=== PATIENT | female | born 1980 | race Caucasian/White ===

== ENCOUNTER 2018-03-13 21:00 | Emergency (ER) ==
[2018-03-13 21:13] VITALS: BP 141/86; TEMP 97.6; BMI 41.1
[2018-03-13] MEDS ORDERED: DILAUDID 1 MG/ML SYRINGE IM STA (21:44)
--- NOTE | 2018-03-13 21:48 | ED.PDOC ---
General ED Provider: Dr. AMARILIS AGOSTO Chief Complaint: Extremity Pain/Injury Stated Complaint: Patient is a 38 year old female who states that she fell with outstreached arm sustaining injury to the right elbow now unable to move it. Time Seen by Physician: 21:46 Mode of Arrival: Walk-In Information Source: Patient Exam Limitations: No limitations Primary Care Provider: DARVIN BIRD Nursing and Triage Documentation Reviewed and Agree: Yes Does patient meet sepsis criteria?: No System Inflammatory Response Syndrome: Not Applicable Sepsis Protocol: For patient's 13 years and over: Temp is 96.8 and below OR 101 and greater Pulse >90 BPM Resp >20/minute Acutely Altered Mental Status Are patient's symptoms suggestive of a new infection, such as: -Pneumonia -Skin, Soft Tissue -Endocarditis -UTI -Bone, Joint Infection -Implantable Device -Acute Abdominal Infection -Wound Infection -Meningitis -Blood Stream Catheter Infection -Unknown Musculoskeletal Complaint Exam - Elbow Pain Complaint/Exam Mechanism of Injury: Reports: Trauma (from a fall ) Onset/Duration: Just prior to arrival Symptoms Are: Still present Onset of Pain: Reports: Immediate, Post accident Initial Severity: Severe Current Severity: Severe Location: Reports: Radiating (wrist and upper arm ) Character: Reports: Aching, Throbbing, Spasmodic Alleviating: Reports: None Aggravating: Reports: Movement, Twisting Associated Signs and Symptoms: Reports: Swelling. Denies: Redness, Bruising, Fever, Weakness, Numbness, Tingling Related History: Denies: Similar episode, Occupational injury Related Surgical History: Reports: None Elbow Findings: Present: Swelling. Absent: Foreign body Tenderness: Present: Lateral Condyle, Radial Head Limited Range of Motion: Present: Flexion Differential Diagnoses: Closed Fracture, Nursemaid's Elbow, Sprain, Strain Review of Systems - Review Of Systems Constitutional: Reports: No symptoms Respiratory: Reports: No symptoms Cardiac: Reports: No symptoms GI: Reports: No symptoms Musculoskeletal: Reports: Joint pain, Joint swelling, Muscle pain, Muscle stiffness Skin: Reports: Bruising Neurological: Reports: Anxiety All Other Systems: Reviewed and Negative Past Medical History - Past Medical History Endocrine: Reports: None Cardiovascular: Reports: None Respiratory: Reports: Asthma Hematological: Reports: Anemia Gastrointestinal: Reports: GERD Genitourinary: Reports: None Neuro/Psych: Reports: Anxiety, Depression Musculoskeletal: Reports: None Cancer: Reports: None Last Menstrual Period: PRESENTLY - Surgical History General Surgical History: Reports: (x2), Tonsillectomy, Other ( Diaphragm repair ) - Family History Family History: Reports: None - Social History Smoking Status: Former smoker, Vaping Hx Substance Use: No Alcohol Screening: Occasionally - Immunizations Tetanus Shot up to Date: (UNKNOWN) Physical Exam - Physical Exam Appearance: Ill-appearing Ill-appearing: Mild Pain Distress: Severe Respiratory: Airway patent, Breath sounds clear, Breath sounds equal, Respirations nonlabored Cardiovascular: RRR, Pulses normal, No rub, No murmur Musculoskeletal: Limited ROM (at elbow and wrist ), Edema Skin: Warm, Dry Neurological: Alert, Oriented Psychiatric: Anxious Critical Care Note - Critical Care Note Total Time (mins): 0 Course - Course Orders, Labs, Meds: Orders Category Date Time Status Ed After Hour Supply Med [Ed After Hours Supply Med MEDS 03/14/18 00:23 Discontinued Sent Home] 1 each PO ONCE ONE Hydromorphone HCl [Dilaudid 1 mg/ml Syringe] MEDS 03/13/18 21:44 Discontinued 1 mg IM ONCE STA Ketorolac Tromethamine [Toradol] MEDS 03/13/18 22:44 Discontinued 60 mg IM ONCE STA Oxycodone-Acetaminophen 5-325 [Percocet 5-325] MEDS 03/14/18 00:24 Discontinued 1 tab .ROUTE .STK-MED ONE Oxycodone-Acetaminophen 5-325 [Percocet 5-325] MEDS 03/14/18 00:27 Discontinued 1 tab PO ONCE STA ELBOW, RIGHT MIN 3 VIEWS Stat RADS 03/13/18 21:44 Completed WRIST, RIGHT 3 VIEWS Stat RADS 03/13/18 21:44 Completed Medications Discontinued Medications Generic Name Dose Route Start Last Admin Trade Name Freq PRN Reason Stop Dose Admin Hydromorphone HCl 1 mg 03/13/18 21:44 03/13/18 21:54 Dilaudid 1 Mg/Ml Syringe IM 03/13/18 21:45 1 mg ONCE STA Administration Ketorolac Tromethamine 60 mg 03/13/18 22:44 03/13/18 22:54 Toradol IM 03/13/18 22:45 60 mg ONCE STA Administration Miscellaneous Information 1 each 03/14/18 00:23 Ed After Hours Supply Med Sent Home PO 03/14/18 00:24 ONCE ONE Protocol Oxycodone/Acetaminophen 1 tab 03/14/18 00:27 Percocet 5-325 PO 03/14/18 00:28 ONCE STA Vital Signs: Temp Pulse Resp BP Pulse Ox 03/13/18 21:01 97.6 F 91 H 20 141/86 H 99 Departure - Departure Time of Disposition: 00:32 Disposition: HOME SELF-CARE Discharge Problem: Fracture of radial head, right, closed Qualifiers: Encounter type: initial encounter Fracture alignment: nondisplaced Qualified Code(s): S52.124A - Nondisplaced fracture of head of right radius, initial encounter for closed fracture Instructions: Elbow Fracture (ED) Condition: Stable Pt referred to PMD for follow-up: Yes IPMP verified?: No Additional Instructions: Follow up with ORtho in the morning Take Medications as prescribed Prescriptions: Oxycodone-Acetaminophen 5-325 [Percocet 5-325] 1 tab PO Q6H #30 tablet Allergies/Adverse Reactions: Allergies amoxicillin Adverse Reaction (Verified 03/13/18 21:11) Rash latex Adverse Reaction (Verified 03/13/18 21:11) Rash Sulfa (Sulfonamide Antibiotics) Adverse Reaction (Verified 03/13/18 21:11) Hives Home Medications: Ambulatory Orders Duloxetine HCl [Cymbalta] 60 mg PO DAILY 03/13/18 Esomeprazole Magnesium [Nexium] 40 mg PO DAILY 03/13/18 Oxycodone-Acetaminophen 5-325 [Percocet 5-325] 1 tab PO Q6H #30 tablet 03/14/18 Disposition Discussed With: Patient, Family
[2018-03-13] MEDS ORDERED: TORADOL IM STA (22:44)
[2018-03-14] MEDS ORDERED: NORCO 5-325 PO STA (00:22)
[2018-03-14] MEDS ORDERED: ED AFTER HOURS SUPPLY MED SENT HOME PO ONE (00:23)
--- NOTE | 2018-03-14 00:25 | DI ---
EXAM: Lateral view of the right elbow. HISTORY: Fall. FINDINGS: The exam is limited with only a lateral view. There is a fracture of the right radial hea d. There is a questionable fracture of the right radial neck which is not well visualized. Evaluati on of the joint spaces is limited with only a lateral view. Impression: Fracture of the right radial head. Questionable fracture of the right radial neck. Recommend additional views for further evaluation if clinically indicated. Limited exam as described.
[2018-03-14] MEDS: PERCOCET 5-325 ONE ×2 (00:27→00:52)
[2018-03-14] MEDS ORDERED: PERCOCET 5-325 PO STA (00:27)
--- NOTE | 2018-03-14 00:27 | DI ---
EXAM: AP and oblique views of the right wrist. HISTORY: Fall. FINDINGS: The exam is limited without a lateral view. Evaluation of the joint spaces is limited with out a lateral view. There is an old non-united fracture through the tip of the ulnar styloid. No ev idence of acute fracture. Impression: Old non-united fracture through the tip of the ulnar styloid. Limited exam as described.
[2018-03-14] MEDS ORDERED: PERCOCET 5-325 ONE (00:46)
== END 2018-03-14 01:06 | disposition home or self-care (01) ==
LOC: ED 21:00
DX: S52.124A Nondisplaced fracture of head of right radius, initial encounter for closed fracture (principal); W19.XXXA Unspecified fall, initial encounter; Z72.0 Tobacco use
CPT/HCPCS: 96372; 99283

== ENCOUNTER 2018-05-15 11:00 | Outpatient (RCR) ==
--- NOTE | 2018-04-30 16:09 | RS.OPPTEV2 ---
Date of Note: 04/30/18 Visit #: 1 Number of visits approved by Insurance: pending Date of Evaluation: 04/30/18 Payer Source: Medicaid Date of Onset/Injury/Change in Status: 03/13/18 Surgery Performed?: Yes (Radial head replacement, ORIF) Date of Procedure: 03/22/18 (pt also underwent I & D 04/05/18) Treatment Diagnosis: closed displaced fx of head of R radius, R elbow pain, joint stiffness, History of Condition/Mechanism of Injury:: pt suffered a fall outside landing on outstretched arm sustaining fx R radius. pt underwent ORIF 03/22/18, subsequently had infection and underwent I&D 04/05/18 and now has a groshong catheter for IV antibiotics. Reports she has 3 more weeks of IV antibiotics and then oral antibiotics. Prior Level of Function.....Patient was independent with: ADL's, Self Care, Work /Vocation, Caregiving, Ambulation/Mobility, Community Integration/Access Level of Function: pt works as a beautician. Currently unable to work due to injury. Functional Limitations: Sleep, ADL's, Reaching, Pushing, Pulling, Lifting, Carrying Current Subjective/complaints:: pt states that she has been trying to move arm somewhat and is anxious to return to prior level of function. Treatment Side (optional): Right *Precautions: * LATEX ALLERGY*pt with groshong cath for IV antibiotics, infection R elbow Medical History Medical History: Arthritis Surgical History: (x2) Surgical History Comments:: diaphragm repair Smoking Status: Former smoker Hx Home Medications: cynbalta, nexium, percoset Patient's Goals: improve strength and ROM R elbow Pain Assessment - Pain Description Pain Location: R elbow Current Pain Intensity: 3/10 Worst Pain Intensity: 10/10 Functional Outcome Measure UE Functional Index: 13 - G Codes & Severity Modifier G Codes & Modifier: n/a Source of G Code score: n/a Observation - Observation Inspection: incision with small scabbed area, min erythema, no exudate noted. area is warm to touch Posture: Forward Head, Rounded Shoulders, Increased Thoracic Kyphosis Handedness: Right Girth Measurement Upper: R elbow 32cm. 10 cm distal to elbow 28cm Gait - Gait Pattern General Gait Pattern Observation: No Deviations/Normal General Range of Motion: LUE WFL's. BLE WFL's Muscle Strength: LUE 5/5. BLE 5/5. RUE shld flex 4/5, Elbow ROM: Left WFL's Elbow Muscle Strength: Left WFL's - Right Elbow ROM Right Elbow Extension: -20 AROM Right Elbow Flexion: 95 (AROM) Right Elbow Supination: 28 Right Elbow Pronation: 60 Right Elbow ROM Limitations: Soft Tissue Tightness, Muscle Weakness, Pain - Right Elbow Strength Right Elbow Extension: 3- Fair- Right Elbow Flexion: 3- Fair- Right Forearm Pronation: 3- Fair- Right Forearm Supination: 3- Fair- Program Advisor Strength Left Hand Program Advisor Strength: 60# Right Hand Program Advisor Strength: 36# Dynamometer Testing Position: 2nd Position Palpation Palpation Findings: Tenderness Comments:: tenderness R elbow Sensation - Sensation Right Upper Extremity: Intact/Normal Left Upper Extremity: Intact/Normal Right Lower Extremity: Intact/Normal Left Lower Extremity: Intact/Normal Balance - Sitting Balance Static Sitting Balance: Normal Dynamic Sitting Balance: Normal - Standing Balance Static Standing Balance: Normal Dynamic Standing Balance: Normal Interventions - Exercise/Activities/Manual Therapy Exercises/Activities: pt performed wrist flex/ext, wrist pronation/supination, AAROM elbow flex/ext, squeeze ball, finger opposition squeezing the ball Manual Therapy: n/a HOME EXERCISE PROGRAM: pt given written HEP including wrist flex/ext, pronation/ supination, elbow flex/ext, squeeze the ball, finger opposition squeezing the ball. - Charges Timed Code Treatment Minutes: 49 Total Treatment Time: 54 Procedures billed for this date of service:: eval low, ex EVALUATION COMPLEXITY LEVEL EVALUATION COMPLEXITY LEVEL: HISTORY: Low, EXAM OF BODY SYSTEMS: Low, CLINICAL PRESENTATION: Low, CLINICAL DECISION MAKING: Low Assessment Assessment: pt presents with decreased R elbow ROM, swelling R elbow, decreased strength R elbow. Feel pt would benefit from skilled PT for therex for ROM, strengthening. Patient Education: Home Exercise Program, Education of Plan of Care Rehab Potential: Good Short Term Goals Goal #1: pt independent with initial HEP Goal to be met by: 05/10/18 Goal #2: Improve R elbow flex 100 ext -10, pronation WFL's Goal to be met by: 05/10/18 Goal #3: Improve R elbow strength flex/ext 3+-4-/5 Goal to be met by: 05/10/18 Goal #4: Decrease edema R elbow Goal to be met by: 05/10/18 Keg Washer Goals Goal #1: Decrease pain R elbow < 3/10 with activity Goal to be met by: 05/24/18 Goal #2: pt report able to return to normal daily activities Goal to be met by: 05/24/18 Goal #3: R elbow flex 120 ext -5, supination 60, pronation neutral Goal to be met by: 05/24/18 Plan - Treatment to be Provided Procedures: Therapeutic Exercises, Therapeutic Activity, Manual Therapy, Massage , Patient Education Modalities: Cryotherapy - Treatment Plan Frequency: 2 X week Duration: 4 weeks Dates of Keg Washer Goals: 05/24/18 Expiration date of current Insurance Approval:: 05/24/18 - Treatment Code (1) Pain in right elbow Code(s): M25.521 - PAIN IN RIGHT ELBOW (2) Swelling of right elbow Code(s): M25.421 - EFFUSION, RIGHT ELBOW (3) Stiffness of right elbow joint Code(s): M25.621 - STIFFNESS OF RIGHT ELBOW, NOT ELSEWHERE CLASSIFIED (4) Muscle weakness Code(s): M62.81 - MUSCLE WEAKNESS (GENERALIZED) (5) Closed displaced fracture of head of radius Code(s): S52.123A - DISP FX OF HEAD OF UNSP RADIUS, INIT FOR CLOS FX Qualifiers: Encounter type: initial encounter Laterality: right Qualified Code(s): S52.121A - Displaced fracture of head of right radius, initial encounter for closed fracture
--- NOTE | 2018-05-03 12:03 | RS.OPPTDN ---
Subjective Date of Note: 05/03/18 Visit #: 2 Number of visits approved by Insurance: Pending Date of Evaluation: 04/30/18 Payer Source: Medicaid Treatment Diagnosis: closed displaced fx of head of R radius, R elbow pain, joint stiffness, Current Subjective/complaints:: Patient reports discomfort with passive and active motion of the right elbow and forearm. Report she is increasing use of the right UE with daily activities at home. *Precautions: * LATEX ALLERGY*pt with groshong cath for IV antibiotics, infection R elbow Pain Assessment - Pain Description Pain Location: right elbow Pain Description: Tightness, Aching, Acute Current Pain Intensity: mod, increased with motion - Heat/Cryotherapy Treatment: Cryotherapy ([id number] to right to elbow prior to EX, and during breaks. Patient in sitting. ) Interventions - Exercise/Activities/Manual Therapy Exercises/Activities: PROM of the right elbow and wrist. Isometric right shoulder add with ball. Isometric bilateral shouler IR holding ball. Isometric right scap protraction with light to mod pressure with ball at wall. Performed wrist flex/ext with 1 and 2# dumbells with elbow supported. 1# pronation/ supination. AAROM elbow flex/ext, squeeze ball, finger opposition. Instructed patient to extend supported right UE for gentle passive elbow extension stretch. Also, self assisted gentle right elbow flexion stretch. Light biceps massage. Instruction in general safety and need to increase ice at home. Patient assisted with application of KACIE wrap to the right UE. Total minutes of Exercise: 42mins Manual Therapy: n/a HOME EXERCISE PROGRAM: pt given written HEP including wrist flex/ext, pronation/ supination, elbow flex/ext, squeeze the ball, finger opposition squeezing the ball. - Charges Timed Code Treatment Minutes: 42mins Total Treatment Time: 57mins Procedures billed for this date of service:: CP, EX3 Assessment: Patient attentive to all instruction and motivated to progress as she expresses desire to return to work when possible. Patient Education: Body/Joint mechanics, Home Exercise Program, Home Safety, Activity Modification Patient demonstrates compliance with HEP?: Yes Short Term Goals Goal #1: pt independent with initial HEP Goal to be met by: 05/10/18 Progress towards Goal:: Progressing Goal #2: Improve R elbow flex 100 ext -10, pronation WFL's Goal to be met by: 05/10/18 Progress towards Goal:: Progressing Goal #3: Improve R elbow strength flex/ext 3+-4-/5 Goal to be met by: 05/10/18 Goal #4: Decrease edema R elbow Goal to be met by: 05/10/18 Ripening Room Operator Goals Goal #1: Decrease pain R elbow < 3/10 with activity Goal to be met by: 05/24/18 Goal #2: pt report able to return to normal daily activities Goal to be met by: 05/24/18 Progress towards goal: Progressing Goal #3: R elbow flex 120 ext -5, supination 60, pronation neutral Goal to be met by: 05/24/18 Plan Dates of Ripening Room Operator Goals: 05/24/18 Expiration date of current Insurance Approval:: 05/24/18 PLAN: Progress ROM and gentle strengthening to increase patients functional use of the right UE.
--- NOTE | 2018-05-07 13:04 | RS.OPPTDN ---
Subjective Date of Note: 05/07/18 Visit #: 3 Number of visits approved by Insurance: pending Date of Evaluation: 04/30/18 Payer Source: Medicaid Treatment Diagnosis: closed displaced fx of head of R radius, R elbow pain, joint stiffness, Current Subjective/complaints:: Reports right elbow tightness and swelling. Reports increased flexibility following exercise including theraband resisted elbow extension. *Precautions: * LATEX ALLERGY*pt with groshong cath for IV antibiotics, infection R elbow Pain Assessment - Pain Description Pain Location: right elbow Current Pain Intensity: mild to mod - Heat/Cryotherapy Treatment: Cryotherapy ([id number] to the right elbow prior to EX. Patient in sitting. ) Interventions - Exercise/Activities/Manual Therapy Exercises/Activities: PROM of the right elbow and wrist. Isometric right shoulder add with ball. Isometric bilateral shouler IR holding ball. bilateral scap protraction while holding ball. Performed wrist flex/ext with 1 and 2# dumbells with elbow supported. 2# pronation/supination. AAROM elbow flex/ext, squeeze ball, finger opposition. Digiflexors, clothes pins, and hand gripper. Yellow theraband for resisted finger flex and ext. Yellow theraband for resisted right elbow ext and shoulder ext, 2s/10reps each. Total minutes of Exercise: 28mins Manual Therapy: Biceps tendon massage and directional massage to reduce swelling. Instructed in self directional massage. Total minutes of Manual Therapy: 10mins HOME EXERCISE PROGRAM: pt given written HEP including wrist flex/ext, pronation/ supination, elbow flex/ext, squeeze the ball, finger opposition squeezing the ball. - Objective Findings Observations,measurements,etc.: Right hand heat treatment technician increased to 42#. - Charges Timed Code Treatment Minutes: 38mins Total Treatment Time: 53mins Procedures billed for this date of service:: CP, EX2, MT Assessment: Patient progressing with light strengthening and right hand heat treatment technician. Patient Education: Body/Joint mechanics, Home Exercise Program, Home Safety, Activity Modification Patient demonstrates compliance with HEP?: Yes Short Term Goals Goal #1: pt independent with initial HEP Goal to be met by: 05/10/18 Progress towards Goal:: Met Goal #2: Improve R elbow flex 100 ext -10, pronation WFL's Goal to be met by: 05/10/18 Progress towards Goal:: Progressing Goal #3: Improve R elbow strength flex/ext 3+-4-/5 Goal to be met by: 05/10/18 Goal #4: Decrease edema R elbow Goal to be met by: 05/10/18 [employer] Goals Goal #1: Decrease pain R elbow < 3/10 with activity Goal to be met by: 05/24/18 Goal #2: pt report able to return to normal daily activities Goal to be met by: 05/24/18 Progress towards goal: Progressing Goal #3: R elbow flex 120 ext -5, supination 60, pronation neutral Goal to be met by: 05/24/18 Plan Dates of Fpc Goals: 05/24/18 Expiration date of current Insurance Approval:: 05/24/18 PLAN: Progress with ROM and strengthening.
--- NOTE | 2018-05-09 13:31 | RS.OPPTDN ---
Subjective Date of Note: 05/09/18 Visit #: 4 Number of visits approved by Insurance: pending Date of Evaluation: 04/30/18 Payer Source: Medicaid Treatment Diagnosis: closed displaced fx of head of R radius, R elbow pain, joint stiffness, Current Subjective/complaints:: Patient reports she is doing more activities as home, such as cleaning. Discomfort at end range with stretch, including flexion. *Precautions: * LATEX ALLERGY*pt with groshong cath for IV antibiotics, infection R elbow Pain Assessment - Pain Description Pain Location: right elbow Pain Description: Tightness, Aching Current Pain Intensity: mild to mod - Heat/Cryotherapy Treatment: Cryotherapy ([id number] to the right elbow prior to EX. Patient in sitting. ) Interventions - Exercise/Activities/Manual Therapy Exercises/Activities: PROM of the right elbow and wrist. Isometric right shoulder add with ball. Isometric bilateral shouler IR holding ball. Performed wrist flex/ext with 2# ball. 2# pronation/supination. AAROM elbow flex/ext, squeeze ball, finger opposition. Digiflexors, clothes pins, and hand gripper. Increased to red theraband for resisted right elbow ext and shoulder ext, 2s/ 10reps each. 3# wand for overhead flexion. Red theraband for scap retraction with wand. Total minutes of Exercise: 40mins Manual Therapy: Biceps tendon massage and directional massage to reduce swelling. Instructed in self directional massage. Total minutes of Manual Therapy: 2mins HOME EXERCISE PROGRAM: pt given written HEP including wrist flex/ext, pronation/ supination, elbow flex/ext, squeeze the ball, finger opposition squeezing the ball. - Charges Timed Code Treatment Minutes: 42mins Total Treatment Time: 57mins Procedures billed for this date of service:: CP, EX3 Assessment: Patient increasing functional activities at home. Patient Education: Home Exercise Program Patient demonstrates compliance with HEP?: Yes Short Term Goals Goal #1: pt independent with initial HEP Goal to be met by: 05/10/18 Progress towards Goal:: Met Goal #2: Improve R elbow flex 100 ext -10, pronation WFL's Goal to be met by: 05/10/18 Progress towards Goal:: Progressing Goal #3: Improve R elbow strength flex/ext 3+-4-/5 Goal to be met by: 05/10/18 Goal #4: Decrease edema R elbow Goal to be met by: 05/10/18 Ball Shagger Goals Goal #1: Decrease pain R elbow < 3/10 with activity Goal to be met by: 05/24/18 Goal #2: pt report able to return to normal daily activities Goal to be met by: 05/24/18 Progress towards goal: Progressing Goal #3: R elbow flex 120 ext -5, supination 60, pronation neutral Goal to be met by: 05/24/18 Plan Dates of Ball Shagger Goals: 05/24/18 Expiration date of current Insurance Approval:: 05/24/18 PLAN: Progress with ROM and strengthening of the right elbow to return to PLOF.
--- NOTE | 2018-05-13 15:18 | RS.OPPTDN ---
Subjective Date of Note: 05/13/18 Visit #: 5 Number of visits approved by Insurance: Pending Date of Evaluation: 04/30/18 Payer Source: Medicaid Treatment Diagnosis: closed displaced fx of head of R radius, R elbow pain, joint stiffness, Current Subjective/complaints:: Reports she is increasing functional activites at home. States she has increased soreness but has increase flexibility following treatment today. *Precautions: * LATEX ALLERGY*pt with groshong cath for IV antibiotics, infection R elbow Pain Assessment - Pain Description Pain Location: right elbow Current Pain Intensity: mild - Heat/Cryotherapy Treatment: Hot Pack ([id number] to the right elbow prior to EX. Pt in sitting. ) Interventions - Exercise/Activities/Manual Therapy Exercises/Activities: PROM of the right elbow and wrist. Isometric right shoulder add with ball. Isometric bilateral shouler IR holding ball. Performed wrist flex/ext with 2# ball. 2# pronation/supination. AAROM elbow flex/ext. Focus on end range stretching of the right elbow flexion and extension. Total minutes of Exercise: 24mins Manual Therapy: Biceps tendon massage and directional massage to reduce swelling. Began scar massage. Total minutes of Manual Therapy: 14mins HOME EXERCISE PROGRAM: pt given written HEP including wrist flex/ext, pronation/ supination, elbow flex/ext, squeeze the ball, finger opposition squeezing the ball. - Charges Timed Code Treatment Minutes: 38mins Total Treatment Time: 58mins Procedures billed for this date of service:: HP, EX2, MT Assessment: Patient increasing daily activities and ROM of the right elbow. Patient Education: Body/Joint mechanics, Home Exercise Program Patient demonstrates compliance with HEP?: Yes Short Term Goals Goal #1: pt independent with initial HEP Goal to be met by: 05/10/18 Progress towards Goal:: Met Goal #2: Improve R elbow flex 100 ext -10, pronation WFL's Goal to be met by: 05/10/18 Progress towards Goal:: Progressing Goal #3: Improve R elbow strength flex/ext 3+-4-/5 Goal to be met by: 05/10/18 Progress towards Goal:: Progressing Goal #4: Decrease edema R elbow Goal to be met by: 05/10/18 Progress towards Goal:: Progressing Fire Coordinator Goals Goal #1: Decrease pain R elbow < 3/10 with activity Goal to be met by: 05/24/18 Goal #2: pt report able to return to normal daily activities Goal to be met by: 05/24/18 Progress towards goal: Progressing Goal #3: R elbow flex 120 ext -5, supination 60, pronation neutral Goal to be met by: 05/24/18 Plan Dates of Intermediate Goals: 05/24/18 Expiration date of current Insurance Approval:: 05/24/18 PLAN: Progress MT and EX to increase functional uses of the right UE.
--- NOTE | 2018-05-15 16:30 | RS.OPPTDN ---
Subjective Date of Note: 05/15/18 Visit #: 6 Number of visits approved by Insurance: Pending Date of Evaluation: 04/30/18 Payer Source: Medicaid Treatment Diagnosis: closed displaced fx of head of R radius, R elbow pain, joint stiffness, Current Subjective/complaints:: Patient reports an increase in flexibility of the right elbow following last session. States she will get her port removed tomorrow. *Precautions: * LATEX ALLERGY*pt with groshong cath for IV antibiotics, infection R elbow Pain Assessment - Pain Description Pain Location: right elbow Current Pain Intensity: mild to mod with end range stretch. - Heat/Cryotherapy Treatment: Hot Pack ([id number] to the right elbow prior to EX and MT. patient in sitting. ) Interventions - Exercise/Activities/Manual Therapy Exercises/Activities: Focus on PROM of the right elbow and wrist. AAROM elbow and wrist. Gentle joint mobs. Isometric elbow flex/ext, supination/pronation, and alvares flex/ext. PROM of the right shoulder. Total minutes of Exercise: 24mins Manual Therapy: Biceps tendon massage and directional massage to reduce swelling. Scar massage. Total minutes of Manual Therapy: 15mins HOME EXERCISE PROGRAM: pt given written HEP including wrist flex/ext, pronation/ supination, elbow flex/ext, squeeze the ball, finger opposition squeezing the ball. - Charges Timed Code Treatment Minutes: 39mins Total Treatment Time: 54mins Procedures billed for this date of service:: HP, EX2, MT Assessment: Patient progressing with ROM and reporting a decrease in swelling and stiffness. Patient Education: Body/Joint mechanics, Home Exercise Program Patient demonstrates compliance with HEP?: Yes Short Term Goals Goal #1: pt independent with initial HEP Goal to be met by: 05/10/18 Progress towards Goal:: Met Goal #2: Improve R elbow flex 100 ext -10, pronation WFL's Goal to be met by: 05/10/18 Progress towards Goal:: Progressing Goal #3: Improve R elbow strength flex/ext 3+-4-/5 Goal to be met by: 05/10/18 Progress towards Goal:: Progressing Goal #4: Decrease edema R elbow Goal to be met by: 05/10/18 Progress towards Goal:: Progressing Atmospheric Scientist Goals Goal #1: Decrease pain R elbow < 3/10 with activity Goal to be met by: 05/24/18 Goal #2: pt report able to return to normal daily activities Goal to be met by: 05/24/18 Progress towards goal: Progressing Goal #3: R elbow flex 120 ext -5, supination 60, pronation neutral Goal to be met by: 05/24/18 Plan Dates of Residential Goals: 05/24/18 Expiration date of current Insurance Approval:: 05/24/18 PLAN: Progress strength and ROM as tolerated.
== END 2018-05-19 23:59 ==
PROVIDERS: ATTEND Orthopaedic Surgery
DX: S52.121D Displaced fracture of head of right radius, subsequent encounter for closed fracture with routine healing (principal); M25.521 Pain in right elbow; M25.421 Effusion, right elbow; M25.621 Stiffness of right elbow, not elsewhere classified; M62.81 Muscle weakness (generalized)

== ENCOUNTER 2018-05-22 11:00 | Outpatient (RCR) ==
--- NOTE | 2018-05-20 14:04 | RS.OPPTDN ---
Subjective Date of Note: 05/20/18 Visit #: 7 Number of visits approved by Insurance: pending Date of Evaluation: 04/30/18 Payer Source: Medicaid Treatment Diagnosis: closed displaced fx of head of R radius, R elbow pain, joint stiffness, Current Subjective/complaints:: Patient reports increased stiffness right elbow today. States she has been work on HEP as instructed and using the right UE more with ADL's. *Precautions: * LATEX ALLERGY*pt with groshong cath for IV antibiotics, infection R elbow Pain Assessment - Pain Description Pain Location: right elbow Pain Description: Tightness, Sharp, Aching Current Pain Intensity: mild to mod - Heat/Cryotherapy Treatment: Hot Pack ([id number] to the right elbow prior to EX. Patient in sitting. ) Interventions - Exercise/Activities/Manual Therapy Exercises/Activities: Focus on PROM of the right elbow and wrist. AAROM elbow and wrist. Gentle joint mobs. Isometric elbow flex/ext, supination/pronation, and alvares flex/ext. PROM of the right shoulder. Heavy hand gripper and finger web. 2# for slow biceps curl. Total minutes of Exercise: 16mins Manual Therapy: Biceps tendon massage and directional massage to reduce swelling. Scar massage. Total minutes of Manual Therapy: 23mins HOME EXERCISE PROGRAM: pt given written HEP including wrist flex/ext, pronation/ supination, elbow flex/ext, squeeze the ball, finger opposition squeezing the ball. - Objective Findings Observations,measurements,etc.: Right elbow flexion to 127 degrees and extension to approx -10 degrees. - Charges Timed Code Treatment Minutes: 39mins Total Treatment Time: 54mins Procedures billed for this date of service:: HP, EX, MT2 Assessment: Patient progressing with strength and ROM of the right elbow. Patient Education: Home Exercise Program, Activity Modification Patient demonstrates compliance with HEP?: Yes Short Term Goals Goal #1: pt independent with initial HEP Goal to be met by: 05/10/18 Progress towards Goal:: Met Goal #2: Improve R elbow flex 100 ext -10, pronation WFL's Goal to be met by: 05/10/18 Progress towards Goal:: Met Goal #3: Improve R elbow strength flex/ext 3+-4-/5 Goal to be met by: 05/10/18 Progress towards Goal:: Partially Met Comments:: 3+/5 in given range Goal #4: Decrease edema R elbow Goal to be met by: 05/10/18 Progress towards Goal:: Progressing Gastroenterology Nurse Goals Goal #1: Decrease pain R elbow < 3/10 with activity Goal to be met by: 05/24/18 Goal #2: pt report able to return to normal daily activities Goal to be met by: 05/24/18 Progress towards goal: Progressing Goal #3: R elbow flex 120 ext -5, supination 60, pronation neutral Goal to be met by: 05/24/18 Plan Dates of Gastroenterology Nurse Goals: 05/24/18 Expiration date of current Insurance Approval:: 05/24/18 PLAN: Progress strength and ROMN of the right elbow to increase functional use of the right UE.
--- NOTE | 2018-05-22 14:52 | RS.PTSUM ---
Progress Note/Summary Date of Note: 05/22/18 Date of Evaluation: 04/30/18 Number of Visits: 8 Number of visits approved by Insurance: pending [place] medicaid approval Reporting Period for this Progress Note: 04/30/18-05/22/18 Current Complaints/Gains: pt states she is trying to use her RUE as much as possible. 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 pt has made significant improvements with ROM, pain as well as decreased edema. Objective Measurements/Presentation: R elbow flex 120 ext -18 AAROM. Girth measurements R elbow 31.5cm, 10cm below elbow 29cm. Purchasing Administrative Assistant strenth: L UE 60#, RUE 51#. MMT RUE elbow flex 5/5 ext 3-/5. pt rates pain 3-4/10. G Codes: n/a Source of G Code Score: n/a - Short Term Goals Goal #1: pt independent with initial HEP Goal to be met by: 05/10/18 Progress towards Goal:: Met Goal #2: Improve R elbow flex 100 ext -10, pronation WFL's Goal to be met by: 05/10/18 Progress towards Goal:: Met Goal #3: Improve R elbow strength flex/ext 3+-4-/5 Goal to be met by: 05/10/18 (elbow flex 5/5, ext 3-/5) Progress towards Goal:: Partially Met Goal #4: Decrease edema R elbow Goal to be met by: 05/10/18 Progress towards Goal:: Met - Retirement Goals Goal #1: Decrease pain R elbow < 3/10 with activity Goal to be met by: 05/24/18 Goal #2: pt report able to return to normal daily activities Goal to be met by: 05/24/18 Progress towards goal: Progressing Goal #3: R elbow flex 120 ext -5, supination 60, pronation neutral Goal to be met by: 05/24/18 - Assessment Assessment of Improvement/Progress: pt has met STG 1,2,4 progressing toward remaining goals. pt has made progress with strength, ROM, edema and pain. Feel pt would continue to benefit from skilled PT for therex for focus on ROM, as well as manual therapy to decrease edema. Awaiting approval from medicaid for initial visits. pt to return to ortho MD tomorrow. Summary: Patient has made progress towards goals., Patient demonstrates potential to gain increased function with therapy - Plan Plan: Will request continuation of therapy sessions. Frequency: awaiting approval Dates of Retirement Goals: 05/24/18 Expiration date of current Insurance Approval:: 05/24/18
--- NOTE | 2018-05-22 16:11 | RS.OPPTDN ---
Subjective Date of Note: 05/22/18 Visit #: 8 Number of visits approved by Insurance: Pending Date of Evaluation: 04/30/18 Payer Source: Medicaid Treatment Diagnosis: closed displaced fx of head of R radius, R elbow pain, joint stiffness, Current Subjective/complaints:: Patient reports she is using the right UE more with ADL's and is working on HEP. Her goal is to return to work in June. *Precautions: * LATEX ALLERGY*pt with groshong cath for IV antibiotics, infection R elbow - Heat/Cryotherapy Treatment: Hot Pack ([id number] to the right elbow prior to MT and EX. patient in sitting. ) Interventions - Exercise/Activities/Manual Therapy Exercises/Activities: PROM of the right elbow and wrist. AAROM elbow and wrist. Gentle joint mobs. Isometric elbow flex/ext, supination/pronation, and alvares flex/ext. Aggressive stretching right elbow extension and flexion with less pressure. Total minutes of Exercise: 15mins Manual Therapy: Biceps tendon massage and directional massage to reduce swelling. Scar massage. Total minutes of Manual Therapy: 24mins HOME EXERCISE PROGRAM: pt given written HEP including wrist flex/ext, pronation/ supination, elbow flex/ext, squeeze the ball, finger opposition squeezing the ball. - Objective Findings Observations,measurements,etc.: Patient reassessed by evaluating PT in preparation for return to physician. - Charges Timed Code Treatment Minutes: 39mins Total Treatment Time: 54mins Procedures billed for this date of service:: HP, MTx2, EX Assessment: Patient progressing well and will have follow-up with physician tomorrow. Patient Education: Body/Joint mechanics, Home Exercise Program, Activity Modification Patient demonstrates compliance with HEP?: Yes Short Term Goals Goal #1: pt independent with initial HEP Goal to be met by: 05/10/18 Progress towards Goal:: Met Goal #2: Improve R elbow flex 100 ext -10, pronation WFL's Goal to be met by: 05/10/18 Progress towards Goal:: Met Goal #3: Improve R elbow strength flex/ext 3+-4-/5 Goal to be met by: 05/10/18 Progress towards Goal:: Partially Met Goal #4: Decrease edema R elbow Goal to be met by: 05/10/18 Progress towards Goal:: Met Senior Living Goals Goal #1: Decrease pain R elbow < 3/10 with activity Goal to be met by: 05/24/18 Progress towards goal: Progressing Goal #2: pt report able to return to normal daily activities Goal to be met by: 05/24/18 Progress towards goal: Progressing Goal #3: R elbow flex 120 ext -5, supination 60, pronation neutral Goal to be met by: 05/24/18 Progress towards goal: Progressing Plan Dates of Medical Record Assistant Goals: 05/24/18 Expiration date of current Insurance Approval:: 05/24/18 PLAN: Hold chart pending insurance approval and additional orders fron physician.
== END 2018-06-18 23:59 ==
PROVIDERS: ATTEND Orthopaedic Surgery
DX: S52.121D Displaced fracture of head of right radius, subsequent encounter for closed fracture with routine healing (principal); M25.521 Pain in right elbow; M25.421 Effusion, right elbow; M25.621 Stiffness of right elbow, not elsewhere classified; M62.81 Muscle weakness (generalized); Z98.890 Other specified postprocedural states